=== PATIENT | male | born 1960 | race Caucasian/White ===

== ENCOUNTER 2017-12-01 10:25 | Observation (INO) | payer OTHER ==
[~2017-12-01] VITALS: Ht 165.1 cm; Wt 84.4 kg
[2017-12-01] MEDS ORDERED: SODIUM CHLORIDE 0.9% 1000ML 1,000 ML IV STA (10:57)
[2017-12-01] MEDS ORDERED: KETOROLAC TROMETHAMINE 30 MG/ML VIAL IV STA (10:57)
[2017-12-01 11:07] LABS: BASOPHILS % 0.3 % (0.0-1.0); EOSINOPHILS # (AUTO) 0.3 (0.0-0.4); EOSINOPHILS % 2.5 % (0.0-6.0); HEMATOCRIT 61.9 % (38.2-49.6); HEMOGLOBIN 19.8 g/dL (14.0-18.0); LYMPHOCYTES # (AUTO) 2.5 (1.0-3.2); LYMPHOCYTES % 21.2 % (18.0-39.1); MEAN CORPUSCULAR HEMOGLOBIN 26.6 pg (28-32); MEAN CORPUSCULAR VOLUME 83.3 fL (81-99); MONOCYTES # (AUTO) 1.3 (0.2-0.8); MONOCYTES % 11.3 % (4.4-11.3); NEUTROPHILS # (AUTO) 7.6 (2.1-6.9); NEUTROPHILS % 64.1 % (38.7-80.0); PLATELET COUNT 225 x10e3/uL (140-360); RED BLOOD COUNT 7.43 x10e6/uL (4.3-5.7); RED CELL DISTRIBUTION WIDTH 17.7 % (11.7-14.4)
[2017-12-01 11:21] LABS: ANION GAP 14.1 mmol/L (8-16); CALCIUM 9.6 mg/dL (8.4-10.2); CREATININE, SERUM 1.31 mg/dL (0.72-1.25); POTASSIUM 4.1 mmol/L (3.5-5.1)
[2017-12-01 11:29] LABS: BILIRUBIN,URINE NEGATIVE (NEGATIVE); CLARITY,URINE SL CLOUDY (CLEAR); COLOR,URINE YELLOW (YELLOW); KETONES,URINE NEGATIVE (NEGATIVE); LEUKOCYTE ESTERASE ,URINE NEGATIVE (NEGATIVE); NITRITE,URINE NEGATIVE (NEGATIVE); PROTEIN,URINE DIPSTICK TRACE (NEGATIVE); URINE UROBILINOGEN 0.2 mg/dL (0.2 - 1)
[2017-12-01 11:41] LABS: EPITHELIAL CELLS,URINE RARE /LPF
--- NOTE | 2017-12-01 12:07 | Diagnostic Imaging Report ---
CT Abdomen and Pelvis without contrast INDICATION: Renal stones, right flank pain TECHNIQUE: Thin collimation axial images obtained from the diaphragm to the level of the pubic symphysis without nonionic intravenous contrast. RADIATION DOSE: Total DLP: 559.3 mGy*cm Estimated effective dose: (DLP x 0.015 x size factor) mSv CTDIvol has been reviewed. It is below the limits set by the Radiation Protocol Committee (RPC). COMPARISON: None. ABDOMEN FINDINGS: Lung Bases: Numerous tiny nodules in the lower lobes with somewhat diffuse groundglass attenuation in the posterior costophrenic angles. There is fluid distention of the distal esophagus. No hiatal hernia. Liver: Normal in attenuation without mass. Gallbladder: Present and appears normal. No ductal dilatation. Pancreas: Normal attenuation without mass. Spleen: Normal size without mass. Adrenal Glands: No evidence for mass. Kidneys: Right: Intrarenal calculus measures 5 mm. The collecting system is distended. Calculus in the proximal ureter measures 7 mm.. No soft tissue mass. Left: Lower pole calculus has a staghorn morphology and measures 10 mm. No collecting system dilatation. No soft tissue mass. Lymph Nodes: No lymphadenopathy. Aorta: Normal in diameter with scattered calcifications PELVIS FINDINGS: Bowel: Stomach: Distended with water and otherwise normal. Small Bowel: Normal in caliber with normal wall thickness. Large Bowel: Diverticulosis coli is present. No associated inflammation. Appendix: Normal. Bladder: Collapsed. There is submucosal fat deposition at the dome. Ureters: The right ureter distal to the calculus is collapsed. The left ureter is collapsed without calculus. Prostate gland measures 3.6 x 5.3 cm. Bones: Unremarkable for age. Soft tissues: Small fat-containing umbilical hernia IMPRESSION: 1. Bilateral intrarenal calculi. Right hydroureteronephrosis secondary to a calculus in the proximal right ureter. 2. Diverticulosis coli. No evidence for bowel obstruction or inflammation. 3. Bladder wall thickening and prostate hypertrophy. 4. Multiple tiny pulmonary nodules are nonspecific and could represent inflammatory, infectious, or neoplastic processes. Pulmonary consultation is recommended. Signed by: Dr. Herbert Em MD on 12/01/2017 12:04 PM
[2017-12-01] MEDS ORDERED: HYDROMORPHONE 1MG/1ML INJ IV PRN (12:45)
[2017-12-01] MEDS ORDERED: ONDANSETRON HCL INJ 2 MG/ML VIAL IV PRN (12:45)
[2017-12-01] MEDS ORDERED: ONDANSETRON HCL 4 MG ORAL DISINTEGRATING TAB SL PRN (13:00)
[2017-12-01] MEDS: CEFTRIAXONE SOD 1 GM VIAL IV SCH (13:25)
--- NOTE | 2017-12-01 13:25 | History and Physical ---
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 HISTORY OF PRESENT ILLNESS: The patient reports that his pain has been going on for some time and seems to be getting worse. He has been taking Tylenol No. 3 at home for this, which is his usual medication. Denies fevers or june hematuria, but has knowledge that he has kidney stones. PAST MEDICAL HISTORY: Significant for hypertension. He has had a previous cystoscopy about 10 years, ago which was negative for findings by his report. MEDICATIONS 1. Amlodipine 10 mg daily. 2. Tylenol No. 3 p.r.n. 3. He has also been taking aspirin 81 mg daily for general principals. ALLERGIES: HE IS ALLERGIC TO PENICILLIN. PERSONAL/SOCIAL HISTORY: He does not smoke or drink. FAMILY HISTORY: Father of sudden attributed to sudden cardiac . Mother of complications of Parkinson's disease. REVIEW OF SYSTEMS CARDIAC: Negative. GASTROINTESTINAL: Negative. NEUROLOGIC: Negative. RESPIRATORY: Negative. PHYSICAL EXAMINATION GENERAL: Shows a pleasant obese man who is alert and responsive. VITALS: Blood pressure 168/90. HEENT: Unremarkable. NECK: No jugular venous distention. No bruits. THORAX: Heart sounds S1 and S2 are equal. No murmurs. LUNGS: Clear. ABDOMEN: Protuberant. Normal bowel sounds. No masses. Nontender. There is minor right flank tenderness. Left flank nontender. EXTREMITIES: No cyanosis, clubbing or edema. There is no EKG on the chart. CT scan of the abdomen suggests bilateral infrarenal calculi with the right hydroureteronephrosis secondary to calculus in the proximal right ureter, diverticulosis coli, bladder wall thickening, and prostate hypertrophy. Multiple tiny pulmonary nodules, nonspecific. LABORATORY: Studies shows hemoglobin 19.8 suggesting hemoconcentration. White count 11.9. BUN 16, creatinine 1.3. Urinalysis shows red cells and white cells. ASSESSMENT 1. Kidney stones. 2. Right hydroureteronephrosis. 3. Hypertension. 4. Pulmonary nodules, nonspecific and unknown etiology. PLAN: Will give IV fluids. Continue his home medication of amlodipine. Discontinue aspirin. Will check chest x-ray and EKG, and will await consultation with Dr. Mendoza. Job#: [id number] RI cc: MD PINO MABRY MD
[2017-12-01] MEDS: SODIUM CHLORIDE 0.9% 1000ML 1,000 ML IV SCH ×2 (13:30→20:19)
--- NOTE | 2017-12-01 14:45 | Diagnostic Imaging Report ---
Portable chest x-ray INDICATION: Pulmonary nodules COMPARISON: CT abdomen/pelvis 12/01/2017 FINDINGS: Frontal view of the chest obtained at 1410 hours. The cardiac silhouette is normal. The pulmonary vascular markings are normal. The lungs demonstrate no consolidation. Tiny pulmonary nodules identified on CT are not visible by x-ray. The costophrenic angles are sharp. There is no pneumothorax. The osseous structures are stable. IMPRESSION: 1. Intact and normal in morphology. 2. Tiny pulmonary nodules on CT are not visible by x-ray. Signed by: Dr. Herbert Em MD on 12/01/2017 2:41 PM
--- OUTSIDE RECORDS SUMMARY | 2017-12-01 15:09 | XMS REPORT ---
Author Author [facility] Address Unknown Phone Unavailable Care Team Providers Care Utilities Equipment Repairer Name Role Phone BHAVIK LONG Unavailable Unavailable Problems This patient has no known problems. Allergies, Adverse Reactions, Alerts This patient has no known allergies or adverse reactions. Medications This patient has no known medications. Results Test Description Test Time Test Comments Text Results Atomic Results Result Comments CHEST SINGLE (PORTABLE) [place] [address] Patient Name: JAZMIN MCKEON MR #: [id number] : 1960 Age/Sex: 57/M Req #: [id number] Adm Physician: Ordered by: JUDE ANDRES MD Report #: [id number] Location: ER Room/Bed: Procedure: [id number] DX/CHEST SINGLE (PORTABLE) Exam Date: Exam Time: REPORT STATUS: Signed Portable chest x-ray INDICATION: Pulmonary nodules COMPARISON: CT abdomen/pelvis 12/01/2017 FINDINGS: Frontal view of the chest obtained at 1410 hours. The cardiac silhouette is normal. The pulmonary vascular markings are normal. The lungs demonstrate no consolidation. Tiny pulmonary nodules identified on CT are not visible by x-ray. The costophrenic angles are sharp. There is no pneumothorax. The osseous structures are stable. IMPRESSION: 1. Intact and normal in morphology. 2. Tiny pulmonary nodules on CT are not visible by x-ray. Signed by: Dr. Kassie Em MD on 12/01/2017 2:41 PM Dictated By: KASSIE EM MD 40 Transcribed By: SONA on 12/01/171440 COPY TO: JUDE ANDRES MD CT ABDOMEN/PELVIS WO [place] [address] Patient Name: JAZMIN MCKEON MR #: [id number] : 1960 Age/Sex: 57/M Req # : [id number] Adm Physician: Ordered by: BHAVIK LONG MD Report #: [id number] Location: ER Room/Bed: Procedure: [id number] CT/CT ABDOMEN/PELVIS WO Exam Date: 12/01/17 Exam Time: 1133 REPORT STATUS: Signed CT Abdomen and Pelvis without contrast INDICATION: Renal stones, right flank pain TECHNIQUE: Thin collimation axial images obtained from the diaphragm to the level of the pubic symphysis without nonionic intravenous contrast. RADIATION DOSE: Total DLP: 559.3 mGy*cm Estimated effective dose: (DLP x 0.015 x size factor) mSv CTDIvol has been reviewed. It is below the limits set by the Radiation Protocol Committee (RPC). COMPARISON: None. ABDOMEN FINDINGS: Lung Bases: Numerous tiny nodules in the lower lobes with somewhat diffuse groundglass attenuation in the posterior costophrenic angles. There is fluid distention of the distal esophagus. No hiatal hernia. Liver: Normal in attenuation without mass. Gallbladder: Present and appears normal. No ductal dilatation. Pancreas: Normal attenuation without mass. Spleen: Normal size without mass. Adrenal Glands: No evidence for mass. Kidneys: Right: Intrarenal calculus measures 5 mm. The collecting system is distended. Calculus in the proximal ureter measures 7 mm.. No soft tissue mass. Left: Lower pole calculus has a staghorn morphology and measures 10 mm. No collecting system dilatation. No soft tissue mass. Lymph Nodes: No lymphadenopathy. Aorta: Normal in diameter with scattered calcifications PELVIS FINDINGS: Bowel: Stomach: Distended with water and otherwise normal. Small Bowel: Normal in caliber with normal wall thickness. Large Bowel: Diverticulosis coli is present. No associated inflammation. Appendix: Normal. Bladder: Collapsed. There is submucosal fat deposition at the dome. Ureters: The right ureter distal to the calculus is collapsed. The left ureter is collapsed without calculus. Prostate gland measures 3.6 x 5.3 cm. Bones: Unremarkable for age. Soft tissues: Small fat-containing umbilical hernia IMPRESSION: 1. Bilateral intrarenal calculi. Right hydroureteronephrosis secondary to a calculus in the proximal right ureter. 2. Diverticulosis coli. No evidence for bowel obstruction or inflammation. 3. Bladder wall thickening and prostate hypertrophy. 4. Multiple tiny pulmonary nodules are nonspecific and could represent inflammatory, infectious, or neoplastic processes. Pulmonary consultation is recommended. Signed by: Dr. Kassie Em MD on 12/01/2017 12:04 PM Dictated By: KASSIE EM MD COPY TO: BHAVIK LONG MD
[2017-12-01] MEDS: HYDROMORPHONE 2MG/ML INJ IV PRN (15:16)
[2017-12-01 16:15] VITALS: BP 154/97
[2017-12-01 17:00] VITALS: BP 139/81
[2017-12-01 20:00] VITALS: BP 131/87
[2017-12-02] VITALS: BP 138/88
[2017-12-02 04:00] VITALS: BP 139/76
[2017-12-02] MEDS: SODIUM CHLORIDE 0.9% 1000ML 1,000 ML IV SCH ×3 (04:42→22:27)
[2017-12-02 06:40] LABS: BASOPHILS # (AUTO) 0.1 (0.0-0.1); BASOPHILS % 0.4 % (0.0-1.0); EOSINOPHILS # (AUTO) 0.6 (0.0-0.4); EOSINOPHILS % 4.7 % (0.0-6.0); HEMATOCRIT 60.6 % (38.2-49.6); HEMOGLOBIN 19.2 g/dL (14.0-18.0); LYMPHOCYTES # (AUTO) 2.8 (1.0-3.2); LYMPHOCYTES % 24.3 % (18.0-39.1); MEAN CORPUSCULAR HEMOGLOBIN 26.5 pg (28-32); MEAN CORPUSCULAR HGB CONC 31.7 g/dL (31-35); MEAN CORPUSCULAR VOLUME 83.7 fL (81-99); MONOCYTES # (AUTO) 1.1 (0.2-0.8); MONOCYTES % 9.8 % (4.4-11.3); NEUTROPHILS % 60.2 % (38.7-80.0); PLATELET COUNT 224 x10e3/uL (140-360); RED CELL DISTRIBUTION WIDTH 17.5 % (11.7-14.4)
[2017-12-02 06:44] LABS: RED BLOOD COUNT 7.24 x10e6/uL (4.3-5.7)
[2017-12-02 06:58] LABS: ANION GAP 14.4 mmol/L (8-16); BLOOD UREA NITROGEN 14 mg/dL (7-26); BUN/CREATININE RATIO 13 (6-25); CALCIUM 9.7 mg/dL (8.4-10.2); CARBON DIOXIDE 28 mmol/L (22-29); CHLORIDE 105 mmol/L (98-107); CREATININE, SERUM 1.09 mg/dL (0.72-1.25); EST GLOMERULAR FILTRATION RATE > 60 ML/MIN (60-); GLUCOSE 90 mg/dL (74-118); POTASSIUM 4.4 mmol/L (3.5-5.1); SODIUM 143 mmol/L (136-145)
[2017-12-02 07:06] LABS: ALBUMIN 4.1 g/dL (3.5-5.0); BILIRUBIN,DIRECT 0.1 mg/dL (0.0-0.5)
[2017-12-02 07:37] VITALS: BP 134/91
[2017-12-02] MEDS: AMLODIPINE BESYLATE 10 MG TAB PO SCH (08:04)
[2017-12-02] MEDS ORDERED: BELLADONNA/OPIUM 60 MG SUPP PR ONE (09:03)
[2017-12-02] MEDS ORDERED: IOPAMIDOL 610MG/1ML 300 MG/ML VIAL IV ONE (09:06)
[2017-12-02 11:25] VITALS: BP 130/83
[2017-12-02] MEDS: HYDROMORPHONE 2MG/ML INJ IV PRN ×2 (11:25→16:40)
[2017-12-02] MEDS: CEFTRIAXONE SOD 1 GM VIAL IV SCH (12:00)
[2017-12-02 15:16] VITALS: BP 136/88
[2017-12-02] MEDS ORDERED: SEVOFLURANE INHAL SOLN 250 ML PEN BTL ONE (17:55)
[2017-12-02] MEDS ORDERED: EPHEDRINE SULFATE INJ 50 MG/10 ML SYR ONE (17:55)
[2017-12-02] MEDS ORDERED: ONDANSETRON HCL INJ 2 MG/ML VIAL ONE (17:55)
[2017-12-02] MEDS ORDERED: DEXAMETHASONE SOD PHOS INJ 4 MG/ML VIAL ONE (17:55)
[2017-12-02] MEDS ORDERED: PROPOFOL IV EMULSION 10 MG/ML 20 ML VIAL ONE (17:55)
[2017-12-02] MEDS ORDERED: LIDOCAINE HCL 2% LOCAL INJ 5 ML SDV VIAL INJ ONE (17:55)
[2017-12-02] MEDS ORDERED: FENTANYL CITRATE/PF 100MCG/2 ML INJ ONE (17:58)
[2017-12-02] MEDS ORDERED: MIDAZOLAM HCL 2 MG/2 ML VIAL ONE (17:58)
[2017-12-02 20:00] VITALS: BP 154/96
[2017-12-03 00:38] VITALS: BP 121/83
[2017-12-03] MEDS: SODIUM CHLORIDE 0.9% 1000ML 1,000 ML IV SCH (04:33)
[2017-12-03 04:44] VITALS: BP 123/81
[2017-12-03 08:19] VITALS: BP 134/88
[2017-12-03] MEDS: AMLODIPINE BESYLATE 10 MG TAB PO SCH (09:23)
[2017-12-03 12:14] VITALS: BP 153/91
[2017-12-03] MEDS: CEFTRIAXONE SOD 1 GM VIAL IV SCH (12:30)
[2017-12-03 16:43] VITALS: BP 155/95
--- NOTE | 2017-12-03 16:48 | Discharge Summary ---
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 He was seen in consultation by Dr. Mendoza. He was given analgesics and IV fluids. On the , he was taken to the operating room where he had ureteral stent placed successfully with resolution of pain. He was monitored overnight and no significant hematuria. Pain is still generally under control. He is discharged to home today with instructions to drink plenty of fluid and to take Tylenol No. 3 and Ditropan as necessary. He will continue his home amlodipine for blood pressure. His hemoglobin and hematocrit will be rechecked later on. DISCHARGE DIAGNOSES: 1. Kidney stone. 2. Successful ureteral stent. 3. Hypertension. 4. Polycythemia. NOTE: He will follow up with Dr. Moralez and Dr. Mendoza in 2 weeks. JUDE ANDRES MD Job#: [id number] EV cc:MD PINO MABRY DO
--- NOTE | 2017-12-05 16:43 | Consultation ---
DATE OF CONSULTATION: December 01, 2017 UROLOGY CONSULTATION REASON FOR CONSULTATION: Renal colic. HISTORY OF PRESENT ILLNESS: Jose Castro is a 57-year-old man with a previous history of urolithiasis. The patient has passed stones previously. He was even taken to the operating room once to do a stone procedure, but his stone was gone. The patient was a previous patient of Dr. John Lyn, who is now retired. The patient presented with severe right-sided flank pain. He did not see any hematuria. He did have some nausea without vomiting. The patient was noted to have urolithiasis and was admitted. PAST MEDICAL AND SURGICAL HISTORY 1. Status post plastic surgery on the ears as a teenager. 2. Hypertension. 3. Hypercholesterolemia. 4. Hypogonadism, on testosterone pellet implantation by the patient's primary physician that is done twice per year. 5. Erectile dysfunction managed with 60 mg of sildenafil as needed. 6. Borderline hypercholesterolemia. ALLERGIES: PENICILLIN. CURRENT MEDICATIONS: Please refer to the MAR. SOCIAL HISTORY: The patient denies current smoking, alcohol or drug use. The patient is a chiropractor. He has a supportive at the bedside. FAMILY HISTORY: Noncontributory to the active urological problem. REVIEW OF SYSTEMS: Consistent per the history of present illness and past medical history, and otherwise negative for all other systems. PHYSICAL EXAMINATION GENERAL: A healthy appearing 57-year-old man lying in bed in no apparent distress. VITALS: He is currently afebrile. Vital signs are currently stable. ABDOMEN: Soft and nondistended. Possibly minimally tender in the right flank without true right costovertebral angle tenderness. Kidneys are not palpable. No hepatosplenomegaly. No evidence of hernia. GENITOURINARY: Testes are noted to be distended bilaterally and bilaterally atrophic. The patient has a normal male phallus with a meatus, which may be small. Digital rectal examination is deferred at the present time. For the remaining physical examination systems, please refer to the admission history and physical on the chart. LABORATORY STUDIES: CT scan of the abdomen and pelvis reveals a right intrarenal calculus that is 5 mm in size. The left staghorn like calculus that is 10 mm in size, and a 7 mm right proximal ureteral stone that is causing right-sided hydroureteronephrosis. White blood cell count is elevated at 11,910. Hemoglobin is elevated at 19.8. The patient's creatinine is elevated at 1.31. Urinalysis significant for 6-10 rbcs, 6-10 wbcs. ASSESSMENT 1. Right renal colic. 2. Nausea that has improved. 3. Presumably acute renal failure. 4. Hypogonadism. 5. Atrophic testes. 6. Erectile dysfunction. 7. Bilateral nephrolithiasis. 8. Right proximal ureterolithiasis. 9. Right hydroureteronephrosis. 10. Leukocytosis. 11. Microhematuria. 12. Polycythemia. PLAN 1. The patient has an obstructing stone and bilateral nonobstructing stones. The patient has a low likelihood of passing the stone. I offered the patient ureteral stenting, which will resolve his obstruction followed by outpatient multiple procedures, including ESWL and most likely ureteroscopy as well. 2. Intravenous antibiotics. 3. Analgesics. Thank you very much for involving us in the care of your patient. I will be happy to follow him along with you, as well as an outpatient. Job#: [id number] RI cc: PINO SOTO MD
[2017-12-18] MEDS ORDERED: AMLODIPINE BESY10 MG PO (09:01)
[2017-12-18] MEDS ORDERED: VIAGRA25 MG PO (09:01)
[2017-12-18] MEDS ORDERED: TYLENOL WITH C1 EACH PO (09:01)
--- NOTE | 2018-01-13 17:02 | Operative Report ---
DATE OF PROCEDURE: December 02, 2017 PREOPERATIVE DIAGNOSES 1. Right hydronephrosis due to stone. 2. Nephrolithiasis. 3. Ureterolithiasis. POSTOPERATIVE DIAGNOSES 1. Right hydronephrosis due to stone. 2. Nephrolithiasis. 3. Ureterolithiasis. 4. Urethral stricture disease. PROCEDURES PERFORMED 1. Cystourethroscopy with calibration and dilation of urethral stricture (separately performed for diagnosis of stricture). 2. Cystourethroscopy with bilateral ureteral catheterization and retrograde ureteropyelography (separately performed for delineating the anatomy and location of the nephrolithiasis and ureterolithiasis). 3. Interpretation of retrograde ureteropyelography. 4. Supervision of fluoroscopy; no radiologist present. 5. Cystourethroscopy with insertion of right indwelling ureteral stent (separately performed to relieve the hydronephrosis). ANESTHESIA: General. COMPLICATIONS: None. CLINICAL SUMMARY: Please refer to the consultation from the same hospitalization. OPERATIVE PROCEDURE IN DETAIL: Informed consent was verified. Jose Castro was properly identified, taken to the operating room, and placed on the cystoscopy table in supine position. Anesthesia was uneventfully begun. The patient was then carefully and gently repositioned in the dorsal lithotomy position with all pressure points well padded. His genitalia were prepared and draped in the usual sterile fashion. The 22.5-Serbian cystoscope sheath with the visual obturator in place was atraumatically inserted per patient's urethra. It was guided down the normal distal urethra to the bulbar region where there was a short but significant bulbar urethral stricture. We gently calibrated and dilated across this stricture utilizing the visual obturator and thus we dilated to 22.5-Serbian, which was the size of the sheath. We passed to the patient's prostate bed, was significant for a very early median lobe that was not visually obstructing and kissing lateral lobes. Panendoscopy within the bladder revealed minimal trabeculations. No tumors, no stones, and no diverticula. Normally positioned and configured ureteral orifices were identified. Ureteral catheter was used to cannulate each ureter and retrograde ureteropyelogram was performed. With cystoscopic and fluoroscopic guidance, a right-sided indwelling ureteral stent was then placed. It was coiled in patient's kidney as well as patient's bladder. The retaining suture was cut short. Interpretation of retrograde ureterography: Contrast was then instilled in retrograde fashion bilaterally. The patient did have an obstructing stone in the proximal right ureter. The stent was in good position coiled in patient's kidney as well as patient's bladder at the end of the case. The left side exhibited a lower pole staghorn-type calculus measuring at least a centimeter. There was no hydronephrosis on the left hand side. The right hand side exhibited hydronephrosis. The patient's bladder was drained. The cystoscope was withdrawn. A belladonna and opium suppository was placed revealing a 35 g prostate that is smooth and non-fluctuant without any nodules. Patient was then uneventfully reversed from anesthesia and taken to the recovery room in stable condition. There were no complications during this procedure. He tolerated the procedure well. Plans will be to return the patient to the operating room for a right ESWL as an initial step of managing the patient's stones. Job#: [id number] [facility]
== END 2017-12-03 16:49 | disposition home or self-care (01) ==
LOC: ER 10:25 → EDBEDREQ 14:02 → ERHOLD 15:06 → IMCU 15:10
PROVIDERS: ADMIT Internal Medicine Cardiovascular Disease; ATTEND Internal Medicine Cardiovascular Disease
DX: N13.2 Hydronephrosis with renal and ureteral calculous obstruction (principal); D72.829 Elevated white blood cell count, unspecified; D75.1 Secondary polycythemia; I10 Essential (primary) hypertension; Z88.0 Allergy status to penicillin; Z82.41 Family history of sudden cardiac death; Z84.89 Family history of other specified conditions; R91.8 Other nonspecific abnormal finding of lung field; R11.0 Nausea; E29.1 Testicular hypofunction; N50.0 Atrophy of testis; N52.9 Male erectile dysfunction, unspecified; R31.29 Other microscopic hematuria; N17.9 Acute kidney failure, unspecified
CPT/HCPCS: 36415 ×2; 52281; 52332; 71045; 74176; 74420; 80048 ×2; 80076; 81001; 83970; 84550; 85025 ×2; 93005; 99284; C2617; G0378 ×3; J0696 ×3; J1100; J1170 ×2; J1885; J2001; J2250; J2405; J7030 ×2; Q9967

== ENCOUNTER → 2017-12-20 | Day surgery (SDC) | payer OTHER ==
[~2017-12-20] MED LIST: AMLODIPINE BESY10 MG PO; DEXAMETHASONE SOD PHOS INJ 4 MG/ML VIAL ONE; FENTANYL CITRATE/PF 100MCG/2 ML INJ ONE; LEVOFLOXACIN 500MG/D5W 100ML 100 ML IV ONE; LIDOCAINE HCL 2% LOCAL INJ 5 ML SDV VIAL INJ ONE; MIDAZOLAM HCL 2 MG/2 ML VIAL ONE; ONDANSETRON HCL INJ 2 MG/ML VIAL ONE; PROPOFOL IV EMULSION 10 MG/ML 20 ML VIAL ONE; SEVOFLURANE INHAL SOLN 250 ML PEN BTL ONE; TYLENOL WITH C1 EACH PO; VIAGRA25 MG PO
--- OUTSIDE RECORDS SUMMARY | 2017-12-20 10:23 | XMS REPORT | Continuity of Care Document ---
Author Author [facility] Organization [facility] Address [address] [place] [address] Phone Unavailable Care Team Providers Care Enterprise Systems Engineer Name Role Phone PINO SOTO PCP Advance Directives Directive Response Recorded Date/Time Does the patient have an advance directive? No 12/01/17 4:10pm If yes, is advance directive on file with [facility]? No 12/01/17 4:10pm If not on file with [facility] will patient provide a copy? No 12/01/17 4:10pm Do you have a Directive to Physician? No 12/01/17 11:28am Do you have a Medical Power of Die Maker? No 12/01/17 11:28am Do you have an out of hospital Do Not Resuscitate Order? No 12/01/17 11:28am Do you have any special needs we should be aware of? No 12/01/17 11:28am Do you have a support person here with you today? Yes 12/01/17 11:28am Did patient receive Notice of Privacy Practices? Yes 12/01/17 11:28am Did patient receive patient rights and responsibilities? Yes 12/01/17 11:28am Problems No problem information available. Medications No medication information available. Social History Social History Problem Response Recorded Date/Time Onset Date Status Hx Psychiatric Problems No 12/01/2017 4:10pm Not Applicable Not Applicable Hx Eating Disorder No 12/01/2017 4:10pm Not Applicable Not Applicable Hx Substance Use Disorder No 12/01/2017 4:10pm Not Applicable Not Applicable Hx Depression No 12/01/2017 4:10pm Not Applicable Not Applicable Hx Alcohol Use No 12/01/2017 4:10pm Not Applicable Not Applicable Hx Substance Use Treatment No 12/01/2017 4:10pm Not Applicable Not Applicable Hx Physical Abuse No 12/01/2017 4:10pm Not Applicable Not Applicable Smoking Status Start Date Stop Date Never Smoker Hospital Discharge Instructions No hospital discharge instruction information available. Plan of Care Discharge Date 12/03/17 4:49pm Disposition HOME, SELF-CARE Instructions/Education Provided Kidney Stones Post Operative Pain Prescriptions See Medication Section Referrals TYSON MONTES DE OCA MD (Urology) Order Date: 2 Weeks Entered Date: 12/03/2017 4:21pm Address: [address] [place] [address] PINO SOTO (Family Practice) Order Date: 2 Weeks Entered Date: 12/03/2017 4:21pm Address: [facility] [place] [address] Functional Status Query Response Date Recorded Assistive Devices None December 01, 2017 4:15pm Ambulation Ability Independent December 01, 2017 4:15pm Toileting Ability Independent December 01, 2017 4:15pm Allergies, Adverse Reactions, Alerts Allergen Type Severity Reaction Status Last Updated PENICILLIN Allergy Severe HIVES Active 12/01/17 Immunizations No immunization information available. Vital Signs Acute Vital Signs Vital Response Date/Time Temperature (Fahrenheit) 98.4 degrees F (97.6 - 99.5) 12/03/2017 4:43pm Pulse Pulse Rate (adult) 85 bpm (60 - 90) 12/03/2017 4:43pm Respiratory Rate 18 bpm (12 - 24) 12/03/2017 4:43pm Blood Pressure 155/95 mm Hg 12/03/2017 4:43pm Height 5 ft 5 in 12/01/2017 10:28am Weight 186.03 lb 12/03/2017 8:19am Body Mass Index 31.0 kg/m^2 12/03/2017 8:19am Results Laboratory Results Test Name Result Units Flags Reference Collection Date/Time Result Date/ Time Comments White Blood Count 11.67 x10e3/uL H 4.8-10.8 12/02/2017 6:152017 6:47am Red Blood Count 7.24 x10e6/uL H 4.3-5.7 12/02/2017 6:12/02/2017 6: 47am Hemoglobin 19.2 g/dL H 14.0-18.0 12/02/2017 6:12/02/2017 6:47am Hematocrit 60.6 % H 38.2-49.6 12/02/2017 6:12/02/2017 6:47am Mean Corpuscular Volume 83.7 fL 81-99 12/02/2017 6:12/02/2017 6: 47am Mean Corpuscular Hemoglobin 26.5 pg L 28-32 12/02/2017 6:2017 6:47am Mean Corpuscular Hemoglobin Concent 31.7 g/dL 31-35 12/02/2017 6:12/02/2017 6:47am Red Cell Distribution Width 17.5 % H 11.7-14.4 12/02/2017 6:2017 6:47am Platelet Count 224 x10e3/uL 140-360 12/02/2017 6:12/02/2017 6: 47am Neutrophils (%) (Auto) 60.2 % 38.7-80.0 12/02/2017 6:12/02/2017 6: 47am Lymphocytes (%) (Auto) 24.3 % 18.0-39.1 12/02/2017 6:12/02/2017 6: 47am Monocytes (%) (Auto) 9.8 % 4.4-11.3 12/02/2017 6:12/02/2017 6: 47am Eosinophils (%) (Auto) 4.7 % 0.0-6.0 12/02/2017 6:12/02/2017 6: 47am Basophils (%) (Auto) 0.4 % 0.0-1.0 12/02/2017 6:12/02/2017 6:47am IM GRANULOCYTES % 0.6 % 0.0-1.0 12/02/2017 6:12/02/2017 6:47am Neutrophils # (Auto) 7.0 H 2.1-6.9 12/02/2017 6:12/02/2017 6: 47am Lymphocytes # (Auto) 2.8 1.0-3.2 12/02/2017 6:12/02/2017 6:47am Monocytes # (Auto) 1.1 H 0.2-0.8 12/02/2017 6:12/02/2017 6:47am Eosinophils # (Auto) 0.6 H 0.0-0.4 12/02/2017 6:12/02/2017 6: 47am Basophils # (Auto) 0.1 0.0-0.1 12/02/2017 6:12/02/2017 6:47am Absolute Immature Granulocyte (auto 0.07 x10e3/uL 0-0.1 12/02/2017 6: 12/02/2017 6:47am Urine Color YELLOW YELLOW 12/01/2017 10:12/01/2017 11:29am Urine Clarity SL CLOUDY H CLEAR 12/01/2017 10:3012/01/2017 11:29am Urine Specific [place] 1.025 1.010-1.025 12/01/2017 10:302017 11:29am Urine pH 5 5 - 7 12/01/2017 10:3012/01/2017 11:29am Urine Leukocyte Esterase NEGATIVE NEGATIVE 12/01/2017 10:302017 11:29am Urine Nitrite NEGATIVE NEGATIVE 12/01/2017 10:3012/01/2017 11: 29am Urine Protein TRACE H NEGATIVE 12/01/2017 10:3012/01/2017 11:29am Urine Glucose (UA) NEGATIVE NEGATIVE 12/01/2017 10:3012/01/2017 11 :29am Urine Ketones NEGATIVE NEGATIVE 12/01/2017 10:3012/01/2017 11: 29am Urine Urobilinogen 0.2 mg/dL 0.2 - 1 12/01/2017 10:30am 12/01/2017 11: 29am Urine Bilirubin NEGATIVE NEGATIVE 12/01/2017 10:3012/01/2017 11: 29am Urine Blood 2+ H NEGATIVE 12/01/2017 10:3012/01/2017 11:29am Urine WBC 6-10 /HPF H 0-5 12/01/2017 10:30am 12/01/2017 11:41am Urine RBC 6-10 /HPF H 0-5 12/01/2017 10:30am 12/01/2017 11:41am Urine Bacteria NONE /HPF NONE 12/01/2017 10:30am 12/01/2017 11:41am Urine Epithelial Cells RARE /LPF NONE 12/01/2017 10:30am 12/01/2017 11: 41am Sodium Level 143 mmol/L 136-145 12/02/2017 6:1512/02/2017 6:59am Potassium Level 4.4 mmol/L 3.5-5.1 12/02/2017 6:1512/02/2017 6:59am Chloride Level 105 mmol/L 98-107 12/02/2017 6:1512/02/2017 6:59am Carbon Dioxide Level 28 mmol/L 22-12/02/2017 6:1512/02/2017 6: 59am Anion Gap 14.4 mmol/L 8-12/02/2017 6:1512/02/2017 6:59am Blood Urea Nitrogen 14 mg/dL 7-12/02/2017 6:1512/02/2017 6:59am Creatinine 1.09 mg/dL 0.72-1.25 12/02/2017 6:1512/02/2017 6:59am BUN/Creatinine Ratio 13 6-12/02/2017 6:1512/02/2017 6:59am Estimat Glomerular Filtration Rate > 60 ML/MIN 60- 12/02/2017 6:15 6:59am Ranges were taken from the National Kidney Disease Education Program and the National Kidney Foundation literature. Reference ranges: 60 or greater: Normal 16-59 (for 3 consecutive months): Chronic kidney disease 15 or less: Kidney failure Glucose Level 90 mg/dL 74-118 12/02/2017 6:12/02/2017 6:59am Calcium Level 9.7 mg/dL 8.4-10.2 12/02/2017 6:12/02/2017 6:59am Uric Acid 4.6 mg/dL L 4.8-8.0 12/02/2017 6:12/02/2017 7:40am Total Bilirubin 0.4 mg/dL 0.2-1.2 12/02/2017 6:12/02/2017 7:07am Direct Bilirubin 0.1 mg/dL 0.0-0.5 12/02/2017 6:12/02/2017 7:07am Aspartate Amino Transf (AST/SGOT) 24 IU/L 5-34 12/02/2017 6:2017 7:07am Alanine Aminotransferase (ALT/SGPT) 19 IU/L 0-55 12/02/2017 6: 7:07am Total Protein 7.5 g/dL 6.5-8.1 12/02/2017 6:12/02/2017 7:07am Albumin 4.1 g/dL 3.5-5.0 12/02/2017 6:12/02/2017 7:07am Alkaline Phosphatase 77 IU/L 40-150 12/02/2017 6:12/02/2017 7: 07am Parathyroid Hormone 10 pg/mL L 15-65 12/02/2017 6:12/03/2017 8: 11am Calcium (Send out) 9.4 mg/dL 8.7-10.2 12/02/2017 6:12/03/2017 8: 11am Parathyroid Hormone Interpretation Comment . 12/02/2017 6:2017 8:11am Interpretation Intact PTH Calcium (pg/mL) (mg/dL) Normal 15 - 65 8.6 - 10.2 Primary Hyperparathyroidism >65 >10.2 Secondary Hyperparathyroidism >65 <10.2 Non-Parathyroid Hypercalcemia <65 >10.2 Hypoparathyroidism <15 < 8.6 Non-Parathyroid Hypocalcemia 15 - 65 < 8.6 Performed at: - [facility] [id number] Engineering Professor: Frank Campos MD, Phone: [phone] Performed at: [address] [id number] Engineering Professor: Marcin Marte MD, Phone: [phone] Procedures Procedure Status Date Provider(s) Cystoscopy with retrograde pyelography Completed 12/02/17 TYSON MONTES DE OCA MD CT of abdomen and pelvis without contrast Active 12/01/17 BHAVIK LONG MD Encounters Encounter Location Arrival/Admit Date Discharge/Depart Date Attending Provider Discharged Inpatient (obs) [facility] 12/01/17 3:06pm 4:49pm JUDE ANDRES MD
--- NOTE | 2017-12-20 11:50 | Diagnostic Imaging Report ---
PROCEDURE:X-RAY ABDOMEN - KUB COMPARISON:None. INDICATIONS:PREOP KUB FINDINGS: A right nephroureteral stent is in the expected position. The proximal pigtail is incompletely closed. A 1.0 cm stones projected over the lower pole of the right kidney, lower pole. A 1.2 cm stone or cluster of stones is projected over the left kidney, lower pole. No stones are projected over the ureters. No dilated loops of bowel or abnormal air-fluid levels patterns. Visualized portions of the lung bases are clear. Five non-rib bearing lumbar type vertebral bodies identified. CONCLUSION: Right nephroureteral stent is present. Bilateral renal stones as above. No definite stones projected over the ureters. Dictated by: Richard Fonseca M.D. on 12/20/2017 at 11:53 Electronically approved by: Richard Fonseca M.D. on 12/20/2017 at 11:53
--- NOTE | 2018-01-27 10:06 | Operative Report ---
DATE OF PROCEDURE: December 20, 2017 PREOPERATIVE DIAGNOSIS: Right nephrolithiasis. POSTOPERATIVE DIAGNOSIS: Right nephrolithiasis. OPERATIONS PERFORMED 1. Staged right-sided extracorporeal shock lithotripsy. 2. Supervision of fluoroscopy. No radiologist present. ANESTHESIA: General. COMPLICATIONS: None. CLINICAL SUMMARY: Jose Castro is a 57-year-old man with right nephrolithiasis. He is brought for lithotripsy. He is aware of the risks of bleeding, infection, injury to adjacent structures, need for additional procedures, and elected to proceed. OPERATIVE PROCEDURE IN DETAIL: Informed consent was verified. Jose Castro was properly identified and taken to the operating room and placed on the lithotripsy table in the supine position. Anesthesia was uneventfully begun. The patient was noted to have 2 stones. Both of these were treated. There was a proximal stone that seems to be new in the kidney along with a prior kidney stone. Both stones were localized with biplanar fluoroscopy. A total of 3000 shocks were delivered with fragmentation. The patient was then uneventfully reversed from anesthesia and taken to the recovery room in stable condition. There were no complications to the procedure. The patient tolerated the procedure well. Explicit postoperative instructions were given, and will follow up on the result of the patient's lithotripsy as an outpatient. Job#: [id number] EMILY
== END | disposition home or self-care (01) ==
LOC: OR 10:19
PROVIDERS: ATTEND Urology
DX: N20.0 Calculus of kidney (principal); I10 Essential (primary) hypertension; Z88.0 Allergy status to penicillin
CPT/HCPCS: 50590; 74018; J1100; J1956; J2001; J2250; J2405

== ENCOUNTER → 2018-03-14 | Day surgery (SDC) | payer OTHER ==
[~2018-03-14] MED LIST changes: +CEFTRIAXONE SOD 1 GM VIAL ONE; +DESFLURANE 240 ML BTL INH ONE; +EPHEDRINE SULFATE INJ 50 MG/10 ML SYR ONE; +LIDOCAINE HCL 2% JELLY 5 ML TUBE ONE; -LIDOCAINE HCL 2% LOCAL INJ 5 ML SDV VIAL INJ ONE; -SEVOFLURANE INHAL SOLN 250 ML PEN BTL ONE
--- NOTE | 2018-03-14 08:52 | Diagnostic Imaging Report ---
Exam: KUB. Clinical History: Kidney stone. Preop Comparison: February 04, 2018 Findings: Frontal view of the abdomen demonstrates a nonobstructive bowel gas pattern with moderate retained stool. 1.2 cm calcification over the lower left kidney.No acute bone abnormality. 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 Impression: 1.2 cm calcification over the lower left kidney. Signed by: Dr. Jaylen Parker M.D. on 03/14/2018 8:06 AM
[2018-03-14 10:30] VITALS: BP 131/86
--- NOTE | 2018-05-08 01:06 | Operative Report ---
DATE OF PROCEDURE: March 14, 2018 PREOPERATIVE DIAGNOSIS: Left nephrolithiasis. POSTOPERATIVE DIAGNOSIS: Left nephrolithiasis. OPERATIONS PERFORMED: 1. Staged left-sided extracorporeal shock wave lithotripsy. 2. Supervision of fluoroscopy, no radiologist present. ANESTHESIA: General. COMPLICATIONS: None. CLINICAL SUMMARY: Jose Castro is a 58-year-old man with nephrolithiasis. He is brought for the above procedures. He is aware of the risks of bleeding, infection, injury to adjacent structures, need for additional procedures, and elected to proceed. OPERATIVE PROCEDURE IN DETAIL: Informed consent was verified. Jose Castro was properly identified, taken to the operating room, and placed on the lithotripsy table in supine position. Anesthesia was uneventfully begun. The patient's left nephrolithiasis was localized with biplanar fluoroscopy. A total of 3000 shocks were delivered with excellent fragmentation. The patient was then uneventfully reversed from anesthesia and taken to the recovery room in stable condition. There were no complications to the procedure. He tolerated the procedure well. Explicit postoperative instructions were given. Will follow the patient up in the office. Job#: [id number]
== END | disposition home or self-care (01) ==
LOC: OR 06:04
PROVIDERS: ATTEND Urology
DX: N20.0 Calculus of kidney (principal); I10 Essential (primary) hypertension; Z88.0 Allergy status to penicillin
CPT/HCPCS: 50590; 74018; J1100; J1956; J2001; J2250; J2405; J0696

== ENCOUNTER → 2018-09-18 | Outpatient (CLI) | payer OTHER ==
[~2018-09-18] MED LIST changes: -CEFTRIAXONE SOD 1 GM VIAL ONE; -DESFLURANE 240 ML BTL INH ONE; -DEXAMETHASONE SOD PHOS INJ 4 MG/ML VIAL ONE; -EPHEDRINE SULFATE INJ 50 MG/10 ML SYR ONE; -FENTANYL CITRATE/PF 100MCG/2 ML INJ ONE; -LEVOFLOXACIN 500MG/D5W 100ML 100 ML IV ONE; -LIDOCAINE HCL 2% JELLY 5 ML TUBE ONE; -MIDAZOLAM HCL 2 MG/2 ML VIAL ONE; -ONDANSETRON HCL INJ 2 MG/ML VIAL ONE; -PROPOFOL IV EMULSION 10 MG/ML 20 ML VIAL ONE
--- NOTE | 2018-09-18 08:34 | Diagnostic Imaging Report ---
EXAM: ABDOMEN-1VIEW (KUB) DATE: 09/18/2018 8:07 AM INDICATION: Kidney stone COMPARISON: KUB, 03/14/2018 FINDINGS: 2 supine views of the abdomen were obtained. There is a normal distribution of air in the small and large bowel. The calcification previously projected on the left kidney is no longer identified. No abnormal calcification is seen projected at the level of either kidney, along the expected course of either ureter or at the urinary bladder. 2 small phleboliths are again seen in the right hemipelvis. In some areas a small calcification might be obscured by overlying bowel or bone. No acute bony abnormality. IMPRESSION: 1. No bowel dilatation or evidence for bowel obstruction. 2. No calcifications are seen projected on either kidney. The calcification seen previously on the left is not identified. Signed by: Dr. Jabari Dugan M.D. on 09/18/2018 8:31 AM
== END ==
LOC: RAD 07:57
PROVIDERS: ATTEND Urology
DX: N20.0 Calculus of kidney (principal)
CPT/HCPCS: 74018